=== PATIENT | male | born 2000 | race Caucasian/White ===

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

== ENCOUNTER 2024-03-30 18:44 | Emergency (ER) | payer MEDICAID, OTHER ==
[~2024-03-30] VITALS: Ht 185.4 cm; Wt 133.1 kg
[~2024-03-30 18:44] MED LIST changes: +ATI.5 PO; -ATIVAN0.5 MG PO; +BEN50 PO; -BENADRYL50 MG PO; -[UNRECOGNIZED DRUG - OTHER]
[2024-03-30 18:57] VITALS: BP 154/91; PULSE 90; RESP 18; TEMP 98.6; O2SAT 98
[2024-03-30] MEDS: LIDOCAINE MPF 1% 10 MG/ML VIAL INJ ONE (19:38)
[2024-03-30 19:42] VITALS: BP 154/91; PULSE 90; RESP 18; TEMP 98.6
[2024-03-30] MEDS: MIDAZOLAM 2 MG/2 ML VIAL IM ONE (19:42)
[2024-03-30 19:43] VITALS: O2SAT 98
[2024-03-30] MEDS ORDERED: HYDR-5071 PO (20:14)
[2024-03-30] MEDS ORDERED: SULF-59 PO (20:14)
[2024-03-30] MEDS ORDERED: ACET-8905 PO (20:16)
== END 2024-03-30 20:32 | disposition home or self-care (01) ==
LOC: MED 18:44
DX: L02.412 Cutaneous abscess of left axilla (principal); J45.909 Unspecified asthma, uncomplicated; F41.9 Anxiety disorder, unspecified; Z79.899 Other long term (current) drug therapy; Z91.030 Bee allergy status
CPT/HCPCS: 10061; 96372; 99284; J2001; J2250

== ENCOUNTER 2024-04-01 10:58 | Emergency (ER) | payer OTHER ==
[~2024-04-01] VITALS: Ht 185.4 cm; Wt 131.7 kg
[~2024-04-01 10:58] MED LIST changes: +ACET-8905 PO; +SULF-59 PO
[2024-04-01 11:05] VITALS: BP 139/81; PULSE 89; RESP 17; TEMP 98.1; O2SAT 97
== END 2024-04-01 11:26 | disposition home or self-care (01) ==
LOC: MED 10:58
DX: L02.414 Cutaneous abscess of left upper limb (principal); J45.909 Unspecified asthma, uncomplicated; Z48.00 Encounter for change or removal of nonsurgical wound dressing; Z79.899 Other long term (current) drug therapy
CPT/HCPCS: 99281